=== PATIENT | female | born 1965 | race Caucasian/White ===

== ENCOUNTER → 2024-12-24 | Outpatient (CLI) | payer OTHER, SELFPAY ==
[2024-12-29 11:08] LABS: QNTFERON TB Mitogen Value > 10.00 IU/mL (.); QNTFERON TB Nil Value 0.05 IU/mL (.); QNTFERON TB1+ Ag Value 0.25 IU/mL (.); QNTFERON TB2+ Ag Value 0.11 IU/mL (.); QNTIFERON TB Positive Criteria Negative (Negative)
== END | disposition home or self-care (01) ==
LOC: MTLAB 08:28
PROVIDERS: PCP Family Medicine; Referring Provider Physician Assistant; Visit Provider Physician Assistant
DX: L40.0 Psoriasis vulgaris (principal)
CPT/HCPCS: 36415; 86480